=== PATIENT | male | born 1940 | race Caucasian/White ===

== ENCOUNTER 2017-09-08 13:25 | Observation (INO) | payer OTHER, MEDICARE ==
[~2017-09-08] VITALS: Ht 182.9 cm; Wt 152.4 kg
--- NOTE | 2017-09-08 13:43 | ED SYNCOPE COMPLAINT ---
History of Present Illness General Chief Complaint: General Adult Stated Complaint: HYPOTENSIVE, ?SYNCOPE Source: patient, family, old records, EMS Exam Limitations: no limitations Vital Signs & Intake/Output Vital Signs & Intake/Output Vital Signs Date Time Temp Pulse Resp B/P B/P Pulse O2 O2 Flow FiO2 Mean Ox Delivery Rate 09/08 1705 98.0 77 20 112/64 96 Nasal 2.0L Cannula 09/08 1512 97.6 75 24 101/59 94 Nasal 2.0L Cannula 09/08 1428 68 22 82/54 93 Nasal 3.0L Cannula 09/08 1359 93 Nasal 3.0L Cannula 09/08 1331 97.6 82 26 97/52 89 Room Air Allergies Coded Allergies: MDX - Amitriptyline (From [facility]) (Severe, ATRIAL FLUTTER 08/19/10) Reconcile Medications Amlodipine Besylate 5 MG TABLET 0.5 TAB PO DAILY HTN (Reported) Apixaban (Eliquis) 5 MG TABLET 1 TAB PO BID BLOOD THINER (Reported) Cholecalciferol (Vitamin D3) (Vitamin D3) 1,000 UNIT CAPSULE 1 CAP PO DAILY SUPPLEMENT (Reported) Escitalopram Oxalate 10 MG TABLET 1 TAB PO DAILY DEPRESSION (Reported) Ezetimibe (Zetia) 10 MG TABLET 1 TAB PO DAILY HLD (Reported) Metoprolol Tartrate 25 MG TABLET 1 TAB PO BID A.FIB (Reported) Triage Note: PT BIBA FROM HOME FOR ?NEAR 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 PT HAD SUDDEN ONSET OF DIZZINESS WHILE SITTING AT KITCHEN TABLE, DECIDED TO GET UP AND GO LAY DOWN WHEN PT FELL FROM STANDING HEIGHT. PER EMS, REPORTED THAT PT TALKED ALMOST IMMEDIATELY AFTER AND WAS STANDING BEHIND PT WHEN HE FELL SO IT'S INCONCLUSIVE IF PT HAD FULL LOC. PT HAS CHRONIC CHEST PAIN THAT FEELS THE SAME TODAY. HX OF COPD, NO OXYGEN AT BASELINE. PT WAS HYPOTENSIVE ON EMS ARRIVAL. ARRIVES A/O X 4, SLIGHTLY PALE ON ARRIVAL TO ED. Triage Nurses Notes Reviewed? yes Timing: recent history Precipitating Factors: lightheadedness Loss of Consciousness: unsure Associated Symptoms: denies HPI: 77 year old male history of afib on elliquis, copd resents to ER for evaluation for questionable syncopal episode at home. Patient states he was in his normal state of health at the kitchen table went to stand up and became lightheaded. He then as per the fell forward she states that she witnessed the event he did not hit his head, they are not sure if he did black out. The patient denies any on arrival headache neck or back pain or leg injury from the fall. He has a history of chronic chest pain for which he is in pain management his last dose of Vicodin was 2 days ago he states but he took a friend's dose of prescription pain medicine yesterday. He denies any alcohol use today he is an active smoker no vomiting however he has had diarrhea for the past 3 weeks no black or bloody stools No change in his mental status per his however this is the second questionable syncopal episode in the past 3 weeks he did not seek care after the previous episode (Michael Lynn) Past History Travel History Traveled to [place] past 21 day No Medical History Any Pertinent Medical History? see below for history Cardiovascular: AFIB, hypertension Respiratory: COPD Psychiatric: depression Pneumonia Vaccine: 09/22/05 Surgical History Surgical History: non-contributory Psychosocial History Who do you live with Spouse Services at Home None What is your primary language Mongolian Tobacco Use: Current Daily Use Daily Tobacco Use Amount/Type: => 5 Cigarettes daily Family History Hx Contributory? No (Michael Lynn) Review of Systems Review of Systems Constitutional: Reports: see HPI. Comments Review of systems: See HPI, All other systems negative. Constitutional, no chills no fever, no malaise no weight loss HEENT: no sore throat no congestion, no ear pain Cardiovascular: chronic chest pain , no palpitation Skin: no rashes, no change in skin Respiratory: No dyspnea no cough no sputum no hemoptysis GI: No nausea no vomiting, no diarrhea, no bloating/constipation : No dysuria No hematuria, no frequency Muscle skeletal: No joint pain, no back pain, no neck pain, Neurologic: , no headache Psych: No stress no depression,. Heme/endocrine: No bruising no bleeding Immunology: No lymphadenopathy (Michael Lynn) Physical Exam Physical Exam General Appearance: well developed/nourished, no apparent distress, alert, awake Cranial Nerves: normal speech Comments: Well-developed well-nourished person in no acute distress HEENT: Normal EENT exam; PERRL, EOMI, no nystagmus. HEAD is atraumatic. moist mucous membranes. Neck: Supple, no lymphadenopathy, normal range of motion without pain or tenderness Back: Nontender, no CVA tenderness. Full range of motion Cardiovascular: Regular rate and rhythms no murmurs rubs Respiratory: Chest nontender.There were no bony deformities, no asymmetry. No respiratory distress. Patient speaking in full complete sentences. Breath sounds clear to auscultation bilaterally: NO W/R/R Abdomen: Soft, morbidly obese, nontender nondistended, no appreciable organomegaly. Normal bowel sounds. No rebound/guarding, No appreciable enlargement of the abdominal aorta, No ascites. Extremity: No edema, full range of motion of extremities, normal and equal pulses bilaterally, 5 out of 5 strength noted to bilateral upper and lower extremities Neuro: Alert oriented x3, motor sensory normal, cranial nerves II through XII grossly intact. There were no obvious focal neurologic abnormalities. Skin: No appreciable rash on exposed skin, skin is warm and dry. Psych: Mood and affect is normal, memory and judgment is normal. Core Measures ACS in differential dx? Yes CVA/TIA Diagnosis: No Sepsis Present: No Sepsis Focused Exam Completed? No (Leonard KLINE,Michael) Progress Differential Diagnosis: AMI, aortic valve, drug induced syncope, orthostatic syncope, pulmonary embolus, sick sinus syndrome, subarachnoid hem., TIA/CVA, ventricular tach/fib Plan of Care: Orders Procedure Date/time Status Regular Diet 09/08 D Active TROPONIN LEVEL 09/08 1720 Active EKG 09/08 1720 Active Patient Data 09/08 1643 Active LACTIC ACID 09/08 1642 Complete OXYGEN SETUP (GEN) 09/08 1641 Active Saline Lock 09/[address] in observation 09/08 1641 Active Vital Signs 09/08 1641 Active Activity/Ambulation 09/08 1641 Active Code Status 09/08 1641 Active Add-on Test (ER Only) 09/08 1351 Active URINE DRUG SCREEN FOR ER ONLY 09/08 1351 Active URINALYSIS 09/08 1351 Active Telemetry/Standpipe Tender 09/08 1342 Active TROPONIN LEVEL 09/08 1342 Complete PARTIAL THROMBOPLASTIN TIME 09/08 1342 Complete PROTHROMBIN TIME 09/08 1342 Complete LACTIC ACID 09/08 1342 Complete ETHANOL 09/08 1342 Complete COMPREHENSIVE METABOLIC PANEL 09/08 1342 Complete CBC WITHOUT DIFFERENTIAL 09/08 1342 Complete B-TYPE NATRIURETIC PEP (BNP) 09/08 1342 Complete EKG 09/08 1335 Active Intake & Output 09/08 1332 Active Laboratory Tests 09/08/17 1710: Troponin I Pending 09/08/17 1644: Lactic Acid 1.7 09/08/17 1420: Anion Gap 12, Estimated GFR 54 L, BUN/Creatinine Ratio 12.3, Glucose 89, Lactic Acid 2.8 H, Calcium 8.7, Total Bilirubin 0.3, AST 21, ALT 31, Alkaline Phosphatase 41, Troponin I 0.02, Enq-D-Uejuqjudymu Pept 1340 H, Total Protein 5.4 L, Albumin 3.0 L, Globulin 2.4, Albumin/Globulin Ratio 1.3, PT 13.8 H, INR 1.26 H, APTT 34, CBC w Diff NO MAN DIFF REQ, RBC 4.01 L, MCV 97.5 H, MCH 32.4 H, MCHC 33.2, RDW 14.3, MPV 7.2 L, Gran % 81.0 H, Lymphocytes % 10.2 L, Monocytes % 7.3, Eosinophils % 1.0, Basophils % 0.5, Absolute Granulocytes 5.7, Absolute Lymphocytes 0.7 L, Absolute Monocytes 0.5, Absolute Eosinophils 0.1, Absolute Basophils 0, Serum Alcohol 152.0 LABS ORDERED, IV FLUIDS RUNNING, PT AWAKE AND ALERT X 3 ATTHIS TIME C/O CHRONIC CHEST PAIN REQUESTING VICODIN AND SOMETHING TO EAT. 1515 repeat BP 101/59, admitted resting in no acute distress he now admits to one beer and one shot 09/08/2017 4:36:40 PM I updated the patient and his on HIS labs he has not had any abdominal pain, pending CAT scan of the abdomen he is requesting something to eat. IV fluids are running. 1650 discussed with and admitted to his CAT scan results there is been no cough he's afebrile no white count-HE has no sx to suggest pneumonia at this time Diagnostic Imaging: Viewed by Me: Radiology Read, CT Scan. Discussed w/RAD: Radiology Read, CT Scan. Radiology Impression: ATIENT: YAJAIRA HARPER JR PRESENT AGE: 77 PATIENT ACCOUNT NO: [id number] : 42 LOCATION: [facility] ORDERING PHYSICIAN: Michael KLINE SERVICE DATE: 09/08/17-1342 EXAM TYPE: RAD - XRY-PORTABLE CHEST XRAY EXAMINATION: XR CHEST, PORTABLE CLINICAL INFORMATION: Syncope. COMPARISON: Chest done on 05/20/2012. TECHNIQUE: Portable frontal 80 degrees upright view of the chest was obtained. FINDINGS: The cardiomediastinal silhouette is enlarged, at least partially projectional due to the technique. Both lungs are symmetrically expanded and grossly appear clear. The entire study is technically limited due to motion-related artifacts. There is no pleural effusion present. The visualized upper abdomen is unremarkable. IMPRESSION: 1. Technically limited study due to motion-related artifacts. 2. Apparent enlargement of the cardiomediastinal silhouette, at least partially related to the technique. 3. No gross airspace disease. DICTATED BY: Mayra Perez MD DATE/TIME DICTATED:09/08/171423 SOLID FIBER PASTER OPERATOR:BRISA DATE/ TIME TRANSCRIBED:09/08/171423 CONFIDENTIAL, DO NOT COPY WITHOUT APPROPRIATE AUTHORIZATION. <Electronically signed in Other Vendor System> SIGNED BY: Mayra Perez MD 09/08/17 1432, PATIENT: YAJAIRA HARPER JR PRESENT AGE: 77 PATIENT ACCOUNT NO: [id number] : 42 LOCATION: [facility] ORDERING PHYSICIAN: Michael KLINE SERVICE DATE: 09/08/17 EXAM TYPE: CAT - CT HEAD WO IV CONTRAST EXAMINATION: CT HEAD WITHOUT CONTRAST CLINICAL INFORMATION: Near syncope, hypotension COMPARISON: 08/19/2010 TECHNIQUE: Contiguous axial imaging was performed from the skull base to vertex without intravenous administration of contrast. DLP: 633.01 mGy-cm FINDINGS: There is no evidence of acute intracranial hemorrhage or territorial infarction. No abnormal mass effect or midline shift is seen. Garcia to white matter differentiation is well preserved. No extra-axial fluid collections are identified. The ventricles are normal in size. Mild to moderate loss of brain volume with prominence of the sylvian fissure, left more than right, is fairly similar to the comparison CT scan. There are scattered and confluent bilateral periventricular and deep white matter hypodensities which could represent chronic ischemic changes of the small vessel disease. Atherosclerotic calcifications of the cavernous parts of the bilateral carotid arteries noted. The osseous structures and soft tissues are normal. The mastoid air cells and visualized portions of the paranasal sinuses are well aerated. IMPRESSION: No acute intracranial pathology. DICTATED BY: Hal Betancur MD DATE/TIME DICTATED:09/08/171615 SOLID FIBER PASTER OPERATOR:BRISA DATE/TIME TRANSCRIBED:09/08/171615 CONFIDENTIAL, DO NOT COPY WITHOUT APPROPRIATE AUTHORIZATION. <Electronically signed in Other Vendor System> SIGNED BY: Hal Betancur MD 09/08/17 1620, PATIENT: YAJAIRA HARPER JR PRESENT AGE: 77 PATIENT ACCOUNT NO: [id number] : 42 LOCATION: [facility] ORDERING PHYSICIAN: Michael KLINE SERVICE DATE: 09/08/17 EXAM TYPE: CAT - CT ABD & PELVIS W/O IV CONTRAS EXAMINATION: CT ABD PELVIS W/O IV CONTRAS CLINICAL INFORMATION: Presumptive Dx: RO PATHOLOGY
Signs Symptoms: DIARRHEA
COMPARISON: None TECHNIQUE: Multidetector volumetric imaging was performed from the superior aspect of the liver through the pubic symphysis Study done without contrast. Sagittal and coronal reformatted images were obtained on the technologist's workstation. DLP: 1575 mGy-cm FINDINGS: LOWER THORAX: Mild infiltrate/atelectasis and small pleural effusions at both RIGHT and LEFT lower lobes. HEPATOBILIARY: Evaluation of the liver is limited on noncontrasted study. No large liver mass. GALLBLADDER: Has been removed. SPLEEN: Spleen is normal in size. PANCREAS: No focal mass or ductal dilatation. STOMACH AND GASTROINTESTINAL TRACT: Stomach is grossly unremarkable. There is no bowel distention or thickening. No CT evidence of appendicitis. ADRENALS: No adrenal nodules. KIDNEYS/URETERS: There is a 4 mm nonobstructing stone lower calyx RIGHT kidney. There is no hydronephrosis. Perinephric fat are clear. URINARY BLADDER: Unremarkable PELVIC VISCERA: Unremarkable PERITONEUM: No free air or fluid. LYMPH NODES: No lymphadenopathy. VASCULAR: Mild vascular calcifications no aneurysm. BONES, ABDOMINAL WALL AND SOFT TISSUES: Age-appropriate changes of the spine and skeletal system, no destructive osteolytic or osteosclerotic bone lesion found IMPRESSION: 1. There is 4 mm nonobstructing stone lower calyx RIGHT kidney. No hydronephrosis. 2. Mild infiltrates/atelectasis and small pleural effusion at RIGHT and LEFT lower lobe. Please correlate clinically. Other findings as above. DICTATED BY: Gaby Ponce MD DATE/TIME DICTATED:09/08/171616 SOLID FIBER PASTER OPERATOR:BRISA DATE/TIME TRANSCRIBED:09/08/171616 CONFIDENTIAL, DO NOT COPY WITHOUT APPROPRIATE AUTHORIZATION. <Electronically signed in Other Vendor System> SIGNED BY: Gaby Ponce MD 09/08/17 163 Initial ED EKG: normal sinus rhythm, NSR AT 80, NO ACUTE ST SEG CHANGES, NORMAL AXIS Prior EKG: unchanged (Michael Lynn) Departure Departure Time of Disposition: 1638 Disposition: STILL A PATIENT Condition: Stable Clinical Impression Primary Impression: Syncope Secondary Impressions: Alcohol intoxication, Lactic acidosis Referrals: Bobo Alicia MD (PCP/Family) Departure Forms: Customer Survey General Discharge Information Observation Note Spoke With: Fatimah Crook MD Place Patient In: Non-ED OBS Care Area Rationale for Observation: My rational for observation is as follows cardio consult telemetry monitoring trend labs IV fluids premature discharge medically harmful given recent syncope (Michael Lynn) PA/SHOVEL LOG LOADER OPERATOR Co-Sign Statement Statement: ED Attending supervision documentation- x I saw and evaluated the patient. I have also reviewed all the pertinent lab results and diagnostic results. I agree with the findings and the plan of care as documented in the PA's/SHOVEL LOG LOADER OPERATOR's documentation. Syncope, hypotension [] I have reviewed the ED Record and agree with the PA's/SHOVEL LOG LOADER OPERATOR's documentation. [] Additions or exceptions (if any) to the PAs/SHOVEL LOG LOADER OPERATOR's note and plan are summarized below: [] (Tone AREVALO,Heath)
[2017-09-08 14:28] LABS: ABSOLUTE BASOPHIL COUNT 0 /CUMM (0.0-0.2); ABSOLUTE EOSINOPHIL COUNT 0.1 /CUMM (0.0-0.7); ABSOLUTE GRANULOCYTE CT 5.7 /CUMM (1.4-6.5); ABSOLUTE LYMPH COUNT 0.7 /CUMM (1.2-3.4); ABSOLUTE MONOCYTE COUNT 0.5 /CUMM (0.10-0.60); BASOPHIL % 0.5 % (0.0-2.0); HEMATOCRIT 39.1 % (42-52); MEAN CORPUSCULAR HGB 32.4 PG (27.0-31.0); MEAN CORPUSCULAR HGB CONC 33.2 G/DL (33.0-37.0); MEAN CORPUSCULAR VOLUME 97.5 FL (80.0-94.0); MEAN PLATELET VOLUME 7.2 FL (7.4-10.4); PLATELET COUNT 258 /CUMM (130-400); RBC DISTRIBUTION WIDTH 14.3 % (11.5-14.5); RED BLOOD CELL CT 4.01 /CUMM (4.70-6.10); WHITE BLOOD CELL COUNT 7.1 /CUMM (4.8-10.8)
--- NOTE | 2017-09-08 14:32 | RADIOLOGY REPORT ---
EXAMINATION: XR CHEST, PORTABLE CLINICAL INFORMATION: Syncope. COMPARISON: Chest done on 05/20/2012. TECHNIQUE: Portable frontal 80 degrees upright view of the chest was obtained. FINDINGS: The cardiomediastinal silhouette is enlarged, at least partially projectional due to the technique. Both lungs are symmetrically expanded and grossly appear clear. The entire study is technically limited due to motion-related artifacts. There is no pleural effusion present. The visualized upper abdomen is unremarkable. IMPRESSION: 1. Technically limited study due to motion-related artifacts. 2. Apparent enlargement of the cardiomediastinal silhouette, at least partially related to the technique. 3. No gross airspace disease.
[2017-09-08 14:38] LABS: PT 13.8 SEC (9.4-12.5); PTT 34 SEC (25-37)
--- NOTE | 2017-09-08 16:25 | CT SCAN REPORT ---
EXAMINATION: CT HEAD WITHOUT CONTRAST CLINICAL INFORMATION: Near syncope, hypotension COMPARISON: 08/19/2010 TECHNIQUE: Contiguous axial imaging was performed from the skull base to vertex without intravenous administration of contrast. DLP: 633.01 mGy-cm FINDINGS: There is no evidence of acute intracranial hemorrhage or territorial infarction. No abnormal mass effect or midline shift is seen. Garcia to white matter differentiation is well preserved. No extra-axial fluid collections are identified. The ventricles are normal in size. Mild to moderate loss of brain volume with prominence of the sylvian fissure, left more than right, is fairly similar to the comparison CT scan. There are scattered and confluent bilateral periventricular and deep white matter hypodensities which could represent chronic ischemic changes of the small vessel disease. Atherosclerotic calcifications of the cavernous parts of the bilateral carotid arteries noted. The osseous structures and soft tissues are normal. The mastoid air cells and visualized portions of the paranasal sinuses are well aerated. IMPRESSION: No acute intracranial pathology.
--- NOTE | 2017-09-08 16:36 | CT SCAN REPORT ---
EXAMINATION: CT ABD PELVIS W/O IV CONTRAS CLINICAL INFORMATION: Presumptive Dx: RO PATHOLOGY
Signs Symptoms: DIARRHEA
COMPARISON: None TECHNIQUE: Multidetector volumetric imaging was performed from the superior aspect of the liver through the pubic symphysis Study done without contrast. Sagittal and coronal reformatted images were obtained on the technologist's workstation. DLP: 1575 mGy-cm FINDINGS: LOWER THORAX: Mild infiltrate/atelectasis and small pleural effusions at both RIGHT and LEFT lower lobes. HEPATOBILIARY: Evaluation of the liver is limited on noncontrasted study. No large liver mass. GALLBLADDER: Has been removed. SPLEEN: Spleen is normal in size. PANCREAS: No focal mass or ductal dilatation. STOMACH AND GASTROINTESTINAL TRACT: Stomach is grossly unremarkable. There is no bowel distention or thickening. No CT evidence of appendicitis. ADRENALS: No adrenal nodules. KIDNEYS/URETERS: There is a 4 mm nonobstructing stone lower calyx RIGHT kidney. There is no hydronephrosis. Perinephric fat are clear. URINARY BLADDER: Unremarkable PELVIC VISCERA: Unremarkable PERITONEUM: No free air or fluid. LYMPH NODES: No lymphadenopathy. VASCULAR: Mild vascular calcifications no aneurysm. BONES, ABDOMINAL WALL AND SOFT TISSUES: Age-appropriate changes of the spine and skeletal system, no destructive osteolytic or osteosclerotic bone lesion found IMPRESSION: 1. There is 4 mm nonobstructing stone lower calyx RIGHT kidney. No hydronephrosis. 2. Mild infiltrates/atelectasis and small pleural effusion at RIGHT and LEFT lower lobe. Please correlate clinically. Other findings as above.
--- NOTE | 2017-09-08 17:07 | History & Physical ---
General Information and HPI MD Statement: I have seen and personally examined YAJAIRA HARPER JR and documented this H&P. The patient is a 77 year old M who presented with a patient stated chief complaint of [syncopal episode]. Source of Information: patient, family, old records Exam Limitations: no limitations History of Present Illness: 77-year-old male with PMHx of A.fib, HTN, COPD, hx of DVT, chronic left lower pain since he broke his rib long ago, who presented after an episode of syncopal earlier today. The patient felt lightheaded after he stood from the dining table, he then fell forward and lost consciousness for less than a minute as per the witnessed the event. He did not hit his head. The patient denies palpitation, shortness breath, or chest pain prior to the events. No seizure activity, tongue biting, or loss of control over bowel or urine habits. He denies confusion post the event. The patient took Vicodin 2 days ago for chronic right flank pain and left lower chest pain. He decreased smoking from 1 pack to half pack recently. He reported 3 weeks of nonbloody loose diarrhea. He was recently treated for bronchitis with antibiotic. The patient denies any other current active complaints. Allergies/Medications Allergies: Coded Allergies: amitriptyline (From ELAVIL) (Severe, ATRIAL FLUTTER 09/08/17) Home Med list Amlodipine Besylate 5 MG TABLET 0.5 TAB PO DAILY HTN (Reported) Apixaban (Eliquis) 5 MG TABLET 1 TAB PO BID BLOOD THINER (Reported) Cholecalciferol (Vitamin D3) (Vitamin D3) 1,000 UNIT CAPSULE 1 CAP PO DAILY SUPPLEMENT (Reported) Escitalopram Oxalate 10 MG TABLET 1 TAB PO DAILY DEPRESSION (Reported) Ezetimibe (Zetia) 10 MG TABLET 1 TAB PO DAILY HLD (Reported) Metoprolol Tartrate 25 MG TABLET 1 TAB PO BID A.FIB (Reported) Past History Travel History Traveled to [place] past 21 day No Medical History Cardiovascular: AFIB, hypertension Respiratory: COPD Psychiatric: depression Pneumonia Vaccine: 09/22/05 Surgical History Surgical History: non-contributory Past Family/Social History Psychosocial History Services at Home: None Review of Systems Review of Systems Constitutional: Denies: chills, diaphoresis, fever, malaise, weakness, unexplained weight loss. EENTM: Denies: visual changes, hearing changes. Cardiovascular: Reports: peripheral edema, syncope. Denies: chest pain, edema, orthopena, palpitations. Respiratory: Reports: cough (at base line), sputum production (white, at baseline). Denies: hemoptysis, orthopnea, short of breath, wheezing. GI: Reports: diarrhea. Denies: bloating, constipation, distention, nausea, vomiting. Genitourinary: Denies: dysuria, hematuria. Musculoskeletal: Reports: back pain, joint pain. Skin: Denies: rash. Exam & Diagnostic Data Last 24 Hrs of Vital Signs/I&O Vital Signs Date Time Temp Pulse Resp B/P B/P Pulse O2 O2 Flow FiO2 Mean Ox Delivery Rate 09/08 1842 92.6 87 20 114/78 95 09/08 1831 94 Nasal 1.0L Cannula 09/08 1705 98.0 77 20 112/64 96 Nasal 2.0L Cannula 09/08 1512 97.6 75 24 101/59 94 Nasal 2.0L Cannula 09/08 1428 68 22 82/54 93 Nasal 3.0L Cannula 09/08 1359 93 Nasal 3.0L Cannula 09/08 1331 97.6 82 26 97/52 89 Room Air Physical Exam General Appearance Alert, Oriented X3, Cooperative, No Acute Distress Skin No Rashes HEENT Atraumatic, PERRLA, EOMI Neck Supple, No JVD Cardiovascular Regular Rate, Normal S1, Normal S2, No Murmurs Lungs Clear to Auscultation, Normal Air Movement Abdomen Soft, No Tenderness Neurological Normal Speech Extremities No Clubbing, No Cyanosis, edema up to the knee Last 24 Hrs of Labs/Sam: Laboratory Tests 09/08/171817: Methadone Screen Pending, Barbiturate Screen Pending, Ur Phencyclidine Scrn Pending, Amphetamines Screen Pending, U Benzodiazepines Scrn Pending, Urine Cocaine Screen Pending, Urine Cannabis Screen Pending, Urinalysis LIGHT H, Urine Color YEL, Urine Clarity CLEAR, Urine pH 6.0, Ur Specific [place] 1.010, Urine Protein TRACE H, Urine Ketones NEG, Urine Nitrite NEG, Urine Bilirubin NEG, Urine Urobilinogen 0.2, Ur Leukocyte Esterase NEG, Ur Microscopic SEDIMENT EXAMINED, Urine RBC RARE, Urine WBC RARE, Ur Epithelial Cells RARE, Hyaline Casts RARE H, Urine Mucus FEW, Urine Hemoglobin NEG, Urine Glucose NEG 09/08/17 1710: Troponin I 0.02 09/08/17 1644: Lactic Acid 1.7 09/08/17 1420: Anion Gap 12, Estimated GFR 54 L, BUN/Creatinine Ratio 12.3, Glucose 89, Lactic Acid 2.8 H, Calcium 8.7, Total Bilirubin 0.3, AST 21, ALT 31, Alkaline Phosphatase 41, Troponin I 0.02, Osb-D-Rxptimvrmgl Pept 1340 H, Total Protein 5.4 L, Albumin 3.0 L, Globulin 2.4, Albumin/Globulin Ratio 1.3, PT 13.8 H, INR 1.26 H, APTT 34, CBC w Diff NO MAN DIFF REQ, RBC 4.01 L, MCV 97.5 H, MCH 32.4 H, MCHC 33.2, RDW 14.3, MPV 7.2 L, Gran % 81.0 H, Lymphocytes % 10.2 L, Monocytes % 7.3, Eosinophils % 1.0, Basophils % 0.5, Absolute Granulocytes 5.7, Absolute Lymphocytes 0.7 L, Absolute Monocytes 0.5, Absolute Eosinophils 0.1, Absolute Basophils 0, Serum Alcohol 152.0 Assessment/Plan Assessment: 77-year-old male with PMHx of A.fib, HTN, COPD, hx of DVT, chronic left lowerchest pain who presented with chief complaint of syncopal episode. The patient reports lightheaded after standing from sitting position. He reported diarrhea for the past 3 weeks. He is in amlodipine(arterial dilator) and metoprolol(blood reflux tachycardia). Most likely he has orthostatic hypotension especially given his mild TOBY and mildly lactic acidosis on admission. He also cut down on the number of cigarettes, possibly the antihypertensive medication dose need to be adjusted. Head CT didn't show any acute pathology. Plan #Syncopal episode with hx of A.fib * Monitoring telemetry * Orthostatic check * Rule out ACS with serial troponins and EKG * Echocardiogram * Continue metoprolol 25 mg twice a day * Continue Eliquis * Cardiology consult in the morning #TOBY * We'll start gentle hydration with 75 mL an hour * Repeat renal function the morning * Avoid all nephrotoxic including NSAIDs #Diarrhea for the past 3 weeks * Was recently treated with antibiotic for bronchitis * We will send for C. difficile * IV hydration until he tolerated adequate oral intake #HTN * Hold amlodipine given blood pressure in the lower border of normal. #Chronic pain * Tylenol as needed * Avoid NSAIDs given TOBY #Alcohol use * CIWA scoring #COPD * TRC/Nebs PRN * Continue oxygen as needed As Ranked By This Provider Problem List: 1. Syncope 2. Lactic acidosis Core Measures/Misc (12/29) Acute Coronary Syndrome ACS Diagnosis: No Congestive Heart Failure Congestive Heart Failure Diagnosis No Cerebrovascular Accident CVA/TIA Diagnosis: No VTE (View Protocol) VTE Risk Factors Acute Medical Illness No Mechanical VTE Prophylaxis d/t N/A MechProphylax Ordered No VTE Pharm Prophylaxis d/t NA PharmProphylax ordered Sepsis (View protocol) Sepsis Present: No If YES complete Sepsis Event Note If YES complete Sepsis Event Note
[2017-09-08] MEDS ORDERED: METOPROLOL TART25 M1 PO (17:31)
[2017-09-08] MEDS ORDERED: AMLODIPINE BESYL5 M1 PO (17:32)
[2017-09-08] MEDS ORDERED: ESCITALOPRAM OX10 MG PO (17:32)
[2017-09-08] MEDS ORDERED: VITAMIN D31000 UNI1 PO (17:32)
[2017-09-08] MEDS ORDERED: ELIQUIS5 M1 PO (17:33)
[2017-09-08] MEDS ORDERED: ZETIA10 M1 PO (17:35)
[2017-09-08 18:42] VITALS: BP 114/78
--- NOTE | 2017-09-08 18:47 | PN- Att Addend ---
Attending Addendum Attending Brief Note 77M PMH paroxysmal atrial fibrillation on Eliquis, chronic pain, presenting with questionable syncopal episode. He recently ran out of his Vicodin which he takes for chronic chest pain. Today he stood up from sitting, became lightheaded, and fell forward. It is unclear if he lost consciousness, but he did not hit his head. He currently only reports chest pain. He was hyptensive on arrival, improved after IV fluids CT head negative, EKG NSR. Plan - Observation in telemetry - Serial EKG and troponi - IV hydration - Check orthostats in morning - Continue ome medications - EChocardiogram - DVT PPx
[2017-09-08 20:00] VITALS: BP 130/72
[2017-09-08 22:07] VITALS: BP 130/72
[2017-09-09 06:57] VITALS: BP 162/90
--- NOTE | 2017-09-09 07:18 | PN- Housestaff ---
Seth AREVALO,[facility] 09/09/17 0717: Subjective Follow-up For: Syncope Tele-Events Since Last Visit: NSR/ST with HR 82-105 Subjective: Patient seen and examined. States he has left sided chest pain since the fall which is exacerbated with deep breaths. He has chronic chest pain for which he has undergone various tests with Dr Blankenship with no positive results. He states he has chronic symptoms of dizziness and lightheadedness. Review of Systems Constitutional: Reports: no symptoms. Objective Last 24 Hrs of Vital Signs/I&O Vital Signs Date Time Temp Pulse Resp B/P B/P Pulse O2 O2 Flow FiO2 Mean Ox Delivery Rate 09/09 0657 98.2 90 16 162/90 95 09/08 2251 93 Nasal 1.0L Cannula 09/08 2207 98.5 97 24 130/72 93 09/08 2107 80 130/72 09/08 2000 86 130/72 09/09 1999 98.5 86 18 130/72 09/08 1842 92.6 87 20 114/78 95 09/08 1831 94 Nasal 1.0L Cannula 09/08 1705 98.0 77 20 112/64 96 Nasal 2.0L Cannula 09/08 1512 97.6 75 24 101/59 94 Nasal 2.0L Cannula 09/08 1428 68 22 82/54 93 Nasal 3.0L Cannula 09/08 1359 93 Nasal 3.0L Cannula 09/08 1331 97.6 82 26 97/52 89 Room Air Intake & Output 09/09 0800 09/09 0000 09/08 1600 Intake Total 200 Output Total 950 825 Balance -750 -825 Intake, Oral 200 Output, Urine 950 825 Patient 335 lb Weight Physical Exam General Appearance: Alert, Oriented X3, Cooperative, Mild Distress Skin: No Rashes, No Breakdown Skin Temp/Moisture Exam: Warm/Dry Sepsis Skin Exam (color): Normal for Ethnicity HEENT: Atraumatic Cardiovascular: Normal S1, Normal S2, No Murmurs Lungs: Normal Air Movement Abdomen: Soft, No Tenderness Neurological: Normal Speech Extremities: b/l lower extremity edema Last 24 Hrs of Lab/Sam Results Last 24 Hrs of Labs/Mics: Laboratory Tests 09/09/17 0615: Sodium Pending, Potassium Pending, Chloride Pending, Carbon Dioxide Pending, Anion Gap Pending, BUN Pending, Creatinine Pending, BUN/Creatinine Ratio Pending , CBC w Diff NO MAN DIFF REQ, RBC 4.15 L, MCV 97.2 H, MCH 32.9 H, MCHC 33.8, RDW 14.2, MPV 8.4, Gran % 82.8 H, Lymphocytes % 10.9 L, Monocytes % 4.5, Eosinophils % 1.5, Basophils % 0.3, Absolute Granulocytes 7.2 H, Absolute Lymphocytes 0.9 L, Absolute Monocytes 0.4, Absolute Eosinophils 0.1, Absolute Basophils 0 09/08/17 2300: Troponin I 0.02 09/08/17 1818: Urine Opiates Screen < 100, Methadone Screen 55, Barbiturate Screen < 60, Ur Phencyclidine Scrn < 6.00, Amphetamines Screen 175, U Benzodiazepines Scrn < 85, Urine Cocaine Screen < 50, Urine Cannabis Screen < 5.00, Urinalysis LIGHT H, Urine Color YEL, Urine Clarity CLEAR, Urine pH 6.0, Ur Specific [place] 1.010, Urine Protein TRACE H, Urine Ketones NEG, Urine Nitrite NEG, Urine Bilirubin NEG, Urine Urobilinogen 0.2, Ur Leukocyte Esterase NEG, Ur Microscopic SEDIMENT EXAMINED, Urine RBC RARE, Urine WBC RARE, Ur Epithelial Cells RARE, Hyaline Casts RARE H, Urine Mucus FEW, Urine Hemoglobin NEG, Urine Glucose NEG 09/08/17 1710: Troponin I 0.02 09/08/17 1644: Lactic Acid 1.7 09/08/17 1420: Anion Gap 12, Estimated GFR 54 L, BUN/Creatinine Ratio 12.3, Glucose 89, Lactic Acid 2.8 H, Calcium 8.7, Total Bilirubin 0.3, AST 21, ALT 31, Alkaline Phosphatase 41, Troponin I 0.02, Cmb-W-Tuvxzvyxvor Pept 1340 H, Total Protein 5.4 L, Albumin 3.0 L, Globulin 2.4, Albumin/Globulin Ratio 1.3, PT 13.8 H, INR 1.26 H, APTT 34, CBC w Diff NO MAN DIFF REQ, RBC 4.01 L, MCV 97.5 H, MCH 32.4 H, MCHC 33.2, RDW 14.3, MPV 7.2 L, Gran % 81.0 H, Lymphocytes % 10.2 L, Monocytes % 7.3, Eosinophils % 1.0, Basophils % 0.5, Absolute Granulocytes 5.7, Absolute Lymphocytes 0.7 L, Absolute Monocytes 0.5, Absolute Eosinophils 0.1, Absolute Basophils 0, Serum Alcohol 152.0 Microbiology 09/08 2010 STOOL: Clostridium difficile Toxin A & B - COLB Assessment/Plan Assessment: 77-year-old male with PMH of A.fib, HTN, COPD, hx of DVT, chronic left lowerchest pain who presented with chief complaint of a syncopal episode. Assessment: 1. Syncopal episode 2. TOBY - resolved 3. Diarrhea 4. History of Hypertension 5. History of Chronic Pain 6. History of COPD Plan: * Continue monitoring on telemetry for another day. * ACS was ruled out with serial troponins and EKGs * Unclear what precipitated the syncopal event. Patient does have a history of chronic dizziness/lightheadedness. * Echocardiogram to assess LVEF and structural abnormalities - pending * No need for further IVF as his TOBY has resolved. * No further episodes of diarrhea. * Tylenol 1g q8 and Oxycodone 5mg q8p for severe pain. * Continue Amlodipine 5mg home dose for hypertension * Continue Eliquis 5mg BID and Metoprolol 25mg BID3 * Continue Lexapro 10mg daily. * Diet: Regular diet * DVT Prophylaxis: SC Lovenox * Code: Full Code Problem List: 1. Syncope Pain Ratin Pain Location: none Pain Goal: Remain pain free Pain Plan: none Tomorrow's Labs & Rationales: none Ana AREVALO,Sera 09/09/17 1016: Attending Review Statement Attending Statement Attending MD Statement: examined this patient, discuss w/resident/PA/CISCO CONSULTANT, agreed w/resident/PA/CISCO CONSULTANT, reviewed EMR data (avail), discussed with nursing, reviewed images Attending Assessment/Plan: Pt is still complaining of chest pain. He feels that this is all from where he hit his chest with a syncopal event. He feels is musculoskeletal in nature. He is nervous that even before this event his O2 sats were low, which he checks at home. He is a 77-year-old male with morbid obesity and A. fib on Eliquis is here status post a syncopal event. He was hypotensive when he first came to the ER and now with fluids that's resolved. He is not orthostatic. His Norvasc is on hold but his other medications have been continued. Given this ongoing complaint of chest pain and an uninterpretable initial chest x-ray will repeat the chest x-ray today. We'll also have Dr. Mccord who is covering for Dr. Blankenship to see him. Patient is in observation status and if his repeat chest x- ray is okay, his sats are okay and he is cleared by cardiology he can be discharged with outpatient follow-up. home. He is a 77-year-old male with morbid obesity and A. fib on Eliquis is here status post a syncopal event. He was hypotensive when he first came to the ER and now with fluids that's resolved. He is not orthostatic. His Norvasc is on hold but his other medications have been continued. Given this ongoing complaint of chest pain and an uninterpretable initial chest x-ray will repeat the chest x-ray today. We'll also have Dr. Mccord who is covering for Dr. Blankenship to see him. Patient is in observation status and if his repeat chest x- ray is okay, his sats are okay and he is cleared by cardiology he can be discharged with outpatient follow-up.
[2017-09-09 07:51] LABS: ABSOLUTE BASOPHIL COUNT 0 /CUMM (0.0-0.2); ABSOLUTE EOSINOPHIL COUNT 0.1 /CUMM (0.0-0.7); ABSOLUTE GRANULOCYTE CT 7.2 /CUMM (1.4-6.5); ABSOLUTE LYMPH COUNT 0.9 /CUMM (1.2-3.4); ABSOLUTE MONOCYTE COUNT 0.4 /CUMM (0.10-0.60); BASOPHIL % 0.3 % (0.0-2.0); EOSINOPHIL % 1.5 % (0-5); GRANULOCYTE % 82.8 % (42.2-75.2); HEMATOCRIT 40.3 % (42-52); MEAN CORPUSCULAR HGB 32.9 PG (27.0-31.0); MEAN CORPUSCULAR HGB CONC 33.8 G/DL (33.0-37.0); MEAN CORPUSCULAR VOLUME 97.2 FL (80.0-94.0); MEAN PLATELET VOLUME 8.4 FL (7.4-10.4); PLATELET COUNT 259 /CUMM (130-400); RBC DISTRIBUTION WIDTH 14.2 % (11.5-14.5); RED BLOOD CELL CT 4.15 /CUMM (4.70-6.10); WHITE BLOOD CELL COUNT 8.6 /CUMM (4.8-10.8)
[2017-09-09 08:00] VITALS: BP 162/90
--- NOTE | 2017-09-09 11:16 | RADIOLOGY REPORT ---
EXAMINATION: XR CHEST CLINICAL INFORMATION: COPD with musculoskeletal chest pain. Fall with chest trauma. COMPARISON: 09/09/2017 chest x-ray, chest CT from 12/28/2015 TECHNIQUE: 2 views of the chest were obtained. FINDINGS: The study is obtained in obliquity and is underpenetrated. There is stable upper mediastinal prominence, which is similar given differences intact knee to both prior studies and appears to correlate with prominent mediastinal fat. Prominence of the cardiac silhouette also appears to be related to some epicardial fat and is grossly unchanged. The lungs appear clear. No definitive consolidation, pulmonary edema, pleural effusion or pneumothorax. The lateral views are limited due to underpenetration and demonstrate multilevel thoracic spondylosis without definitive compression deformities. IMPRESSION: Limited study without definitive change from the priors. Prominence of the cardiomediastinal silhouette appears to relate to mediastinal and epicardial fat. However, in the setting of trauma if there is clinical concern for mediastinal injury, correlation with CT is recommended given limitations of this examination.
--- NOTE | 2017-09-09 12:39 | Cons- Cardiology ---
General Information and HPI Consulting Request Date of Consult: 09/09/17 Requested By: Sera Perez MD Reason for Consult: Syncope History of Present Illness: The patient is a pleasant 77-year-old male with history of paroxysmal atrial fibrillation, hypertension, COPD, and deep vein thrombosis. He is admitted after syncope. He stood up from the dining table and felt briefly dizzy, followed by loss of consciousness. He fell to the floor, and was observed by his to be unconscious for a few seconds before waking up. No seizure activity noted. He notes intermittent mild lightheadedness. He has had several other similar syncopal episodes, most recently 1 month ago. No chest pain. No shortness of breath. No palpitations. No diaphoresis. No nausea or vomiting. He took Vicodin 2 days ago for right flank pain. He decrease his smoking to one half pack per day recently. He complains of diarrhea 3 weeks. He noted some recurrent lightheadedness today Allergies/Medications Allergies: Coded Allergies: amitriptyline (From [facility]) (Severe, [facility]TER 09/08/17) Home Med List: Amlodipine Besylate 5 MG TABLET 0.5 TAB PO DAILY HTN (Reported) Apixaban (Eliquis) 5 MG TABLET 1 TAB PO BID BLOOD THINER (Reported) Cholecalciferol (Vitamin D3) (Vitamin D3) 1,000 UNIT CAPSULE 1 CAP PO DAILY SUPPLEMENT (Reported) Escitalopram Oxalate 10 MG TABLET 1 TAB PO DAILY DEPRESSION (Reported) Ezetimibe (Zetia) 10 MG TABLET 1 TAB PO DAILY HLD (Reported) Metoprolol Tartrate 25 MG TABLET 1 TAB PO BID A.FIB (Reported) Current Medications: Current Medications Sig/Agatha Start time Last Medication Dose Route Stop Time Status Admin Acetaminophen 1,000 MG Q8 09/09 0807 AC 09/09 PO 0921 Acetaminophen 1,000 MG Q8P PRN 09/08 2100 DC 09/08 PO 2107 Acetaminophen 0 .STK-MED ONE 09/08 1432 DC IV Acetaminophen 1,000 MG ONCE ONE 09/08 1400 DC 09/08 N/A 1 UNIT IV 09/08 1414 1428 Apixaban 5 MG BID 09/08 2100 AC 09/09 PO 0922 Escitalopram Oxalate 10 MG DAILY 09/09 0900 AC 09/09 PO 09 Ezetimibe 10 MG DAILY 09/09 0900 AC 09/09 PO 0922 Metoprolol Tartrate 25 MG BID 09/08 2100 AC 09/09 PO 0922 Morphine Sulfate 15 MG Q4 HRS NEEDED PRN 09/09 0300 AC 09/09 PO 0921 Sodium Chloride 1,000 ML Q13H 09/08 1900 DC 09/08 IV 1931 Sodium Chloride 1,000 ML BOLUS ONE 09/08 1430 DC 09/08 IV 09/08 1529 1428 Sodium Chloride 1,000 ML BOLUS ONE 09/08 1400 DC 09/08 IV 09/08 1459 1359 Review of Systems Review of Systems: No rash. No tremor. No fever. No chills. All other systems were reviewed, and were noted to be negative. Past History Travel History Traveled to [place] past 21 day No Medical History Blood Transfusion Hx: No Cardiovascular: AFIB, hypertension Respiratory: COPD Gastrointestinal: RANDOM PAIN Renal: NEW THIS ADMISSION KIDNEY STONE R SIDE Musculoskeletal: ARTHRITIS NEEDS NEW KNEES Psychiatric: depression Surgical History Surgical History: non-contributory Family History Relations & Conditions If Any: MOTHER Heart attack Psychosocial History Services at Home: None Smoking Status: Current Everyday Smoker Exam & Diagnostic Data Vital Signs and I&O Vital Signs Date Time Temp Pulse Resp B/P B/P Pulse O2 O2 Flow FiO2 Mean Ox Delivery Rate 09/09 0922 90 162/90 09/09 0800 98.2 90 16 162/90 09/09 0800 95 Nasal 1.0L Cannula 09/09 0657 98.2 90 16 162/90 95 09/08 2251 93 Nasal 1.0L Cannula 09/08 2207 98.5 97 24 130/72 93 09/08 2107 80 130/72 09/09 1999 86 130/72 09/09 1999 98.5 86 18 130/72 09/08 1842 92.6 87 20 114/78 95 09/08 1831 94 Nasal 1.0L Cannula 09/08 1705 98.0 77 20 112/64 96 Nasal 2.0L Cannula 09/08 1512 97.6 75 24 101/59 94 Nasal 2.0L Cannula 09/08 1428 68 22 82/54 93 Nasal 3.0L Cannula 09/08 1359 93 Nasal 3.0L Cannula 09/08 1331 97.6 82 26 97/52 89 Room Air Intake & Output 09/09 1600 09/09 0800 09/09 0000 09/08 1600 09/08 0800 09/08 0000 Intake Total 300 200 Output Total 250 950 825 Balance 50 -750 -825 Intake, Oral 300 200 Output, Urine 250 950 825 Patient 335 lb Weight Physical Exam: Gen: The patient is in no acute distress HEENT: Normal nose, ears, and oropharynx. Pupils equal bilaterally. Conjunctiva normal. Neck: Supple with no JVD, no masses, and no thyromegaly Lungs: Clear to auscultation with normal respiratory effort Heart: RRR, S1, S2, no murmurs. No peripheral edema, 2+ pulses in the lower extremities bilaterally Abdomen: Soft, nontender, no masses. No hepatomegaly. No splenomegaly Extremities: No clubbing or cyanosis. Normal muscle strength in the upper and lower extremities Skin: Normal skin turgor with no skin ulcers or lesions noted. Neuro: Cranial nerves intact. Sensation intact Psych: Alert and oriented x 3 with appropriate affect Labs/Sam Results: Laboratory Tests 09/09 09/08 0615 2300 Chemistry Sodium (137 - 145 mmol/L) 141 Potassium (3.5 - 5.1 mmol/L) 5.0 Chloride (98 - 107 mmol/L) 106 Carbon Dioxide (22 - 30 mmol/L) 25 Anion Gap (5 - 16) 10 BUN (9 - 20 mg/dL) 15 Creatinine (0.7 - 1.2 mg/dL) 1.0 Estimated GFR (>60 ml/min) > 60 BUN/Creatinine Ratio (7 - 25 %) 15.0 Troponin I (<0.11 ng/ml) 0.02 Hematology CBC w Diff NO MAN DIFF REQ WBC (4.8 - 10.8 /CUMM) 8.6 RBC (4.70 - 6.10 /CUMM) 4.15 L Hgb (14.0 - 18.0 G/DL) 13.6 L Hct (42 - 52 %) 40.3 L MCV (80.0 - 94.0 FL) 97.2 H MCH (27.0 - 31.0 PG) 32.9 H MCHC (33.0 - 37.0 G/DL) 33.8 RDW (11.5 - 14.5 %) 14.2 Plt Count (130 - 400 /CUMM) 259 MPV (7.4 - 10.4 FL) 8.4 Gran % (42.2 - 75.2 %) 82.8 H Lymphocytes % (20.5 - 51.1 %) 10.9 L Monocytes % (1.7 - 9.3 %) 4.5 Eosinophils % (0 - 5 %) 1.5 Basophils % (0.0 - 2.0 %) 0.3 Absolute Granulocytes (1.4 - 6.5 /CUMM) 7.2 H Absolute Lymphocytes (1.2 - 3.4 /CUMM) 0.9 L Absolute Monocytes (0.10 - 0.60 /CUMM) 0.4 Absolute Eosinophils (0.0 - 0.7 /CUMM) 0.1 Absolute Basophils (0.0 - 0.2 /CUMM) 0 09/08 09/08 09/08 1818 1710 1644 Chemistry Lactic Acid (0.7 - 2.1 mmol/L) 1.7 Troponin I (<0.11 ng/ml) 0.02 Toxicology Urine Opiates Screen (>2000 NG/ML) < 100 Methadone Screen (>300 NG/ML) 55 Barbiturate Screen (>200 NG/ML) < 60 Ur Phencyclidine Scrn (>25 NG/ML) < 6.00 Amphetamines Screen (>1000 NG/ML) 175 U Benzodiazepines Scrn (>200 NG/ML) < 85 Urine Cocaine Screen (>300 NG/ML) < 50 Urine Cannabis Screen (>50 NG/ML) < 5.00 Urines Urinalysis LIGHT H Urine Color (YEL,AMB,STR) YEL Urine Clarity (CLEAR) CLEAR Urine pH (5.0 - 8.0) 6.0 Ur Specific Foley (1.001 - 1.035) 1.010 Urine Protein (NEG,<30 MG/DL) TRACE H Urine Ketones (NEG) NEG Urine Nitrite (NEG) NEG Urine Bilirubin (NEG) NEG Urine Urobilinogen (0.1 - 1.0 EU/dl) 0.2 Ur Leukocyte Esterase (NEG) NEG Ur Microscopic SEDIMENT EXAMINED Urine RBC (0 - 5 /HPF) RARE Urine WBC (0 - 2 /HPF) RARE Ur Epithelial Cells (NONE,FEW) RARE Hyaline Casts (0/LPF) RARE H Urine Mucus (FEW,NONE) FEW Urine Hemoglobin (NEG) NEG Urine Glucose (N MG/DL) NEG 09/08 1420 Chemistry Sodium (137 - 145 mmol/L) 141 Potassium (3.5 - 5.1 mmol/L) 4.2 Chloride (98 - 107 mmol/L) 103 Carbon Dioxide (22 - 30 mmol/L) 26 Anion Gap (5 - 16) 12 BUN (9 - 20 mg/dL) 16 Creatinine (0.7 - 1.2 mg/dL) 1.3 H Estimated GFR (>60 ml/min) 54 L BUN/Creatinine Ratio (7 - 25 %) 12.3 Glucose (65 - 99 mg/dL) 89 Lactic Acid (0.7 - 2.1 mmol/L) 2.8 H Calcium (8.4 - 10.2 mg/dL) 8.7 Total Bilirubin (0.2 - 1.3 mg/dL) 0.3 AST (17 - 59 U/L) 21 ALT (21 - 72 U/L) 31 Alkaline Phosphatase (< 127 U/L) 41 Troponin I (<0.11 ng/ml) 0.02 [id number] Pept (<125 pg/mL) 1340 H Total Protein (6.3 - 8.2 g/dL) 5.4 L Albumin (3.5 - 5.0 g/dL) 3.0 L Globulin (1.9 - 4.2 gm/dL) 2.4 Albumin/Globulin Ratio (1.1 - 2.2 %) 1.3 Coagulation PT (9.4 - 12.5 SEC) 13.8 H INR (0.90 - 1.17) 1.26 H APTT (25 - 37 SEC) 34 Hematology CBC w Diff NO MAN DIFF REQ WBC (4.8 - 10.8 /CUMM) 7.1 RBC (4.70 - 6.10 /CUMM) 4.01 L Hgb (14.0 - 18.0 G/DL) 13.0 L Hct (42 - 52 %) 39.1 L MCV (80.0 - 94.0 FL) 97.5 H MCH (27.0 - 31.0 PG) 32.4 H MCHC (33.0 - 37.0 G/DL) 33.2 RDW (11.5 - 14.5 %) 14.3 Plt Count (130 - 400 /CUMM) 258 MPV (7.4 - 10.4 FL) 7.2 L Gran % (42.2 - 75.2 %) 81.0 H Lymphocytes % (20.5 - 51.1 %) 10.2 L Monocytes % (1.7 - 9.3 %) 7.3 Eosinophils % (0 - 5 %) 1.0 Basophils % (0.0 - 2.0 %) 0.5 Absolute Granulocytes (1.4 - 6.5 /CUMM) 5.7 Absolute Lymphocytes (1.2 - 3.4 /CUMM) 0.7 L Absolute Monocytes (0.10 - 0.60 /CUMM) 0.5 Absolute Eosinophils (0.0 - 0.7 /CUMM) 0.1 Absolute Basophils (0.0 - 0.2 /CUMM) 0 Toxicology Serum Alcohol (<10 MG/DL) 152.0 Diagnostic Data EKG Results EKG tracing is independently reviewed, and reveals normal sinus rhythm at 85 with frequent premature atrial contractions, left axis deviation, QTc 490 CXR Results Chest x-ray 09/09/17 Limited study without definitive change from the priors. Prominence of the cardiomediastinal silhouette appears to relate to mediastinal and epicardial fat. However, in the setting of trauma if there is clinical concern for mediastinal injury, correlation with CT is recommended given limitations of this examination. Other Results Head CT: Negative CT scan of the abdomen and pelvis: 1. There is 4 mm nonobstructing stone lower calyx RIGHT kidney. No hydronephrosis. 2. Mild infiltrates/atelectasis and small pleural effusion at RIGHT and LEFT lower lobe. Please correlate clinically. Other findings as above. Assessment/Plan Assessment/Plan The patient is a 77-year-old male with history of hypertension, DVT, COPD, paroxysmal atrial for ablation who is admitted after sudden onset of syncope. He has had several other recent syncopal episodes. Telemetry monitoring reveals premature atrial contractions but no other significant arrhythmias. He is not orthostatic. Myocardial infarction has been ruled out with negative troponin 3 Recommendations: * Continue current cardiac medications per * Echocardiogram pending * If the patient remains clinically stable he may be discharged after the echocardiogram. He should follow up with Dr. Blankenship within 1 week Consult Acknowledgment - Thank you for your consult request.
[2017-09-09 15:02] VITALS: BP 158/98
--- NOTE | 2017-09-09 17:10 | ECHOCARDIOGRAM REPORT ---
YAJAIRA HARPER Age: 77 : 1940 Gender: M Exam Date: 09/09/2017 11:28 Exam Location: [facility] Ht (in): 72 Wt (lb): 336 BSA: 2.86 BP: 162 / 90 Ordering Physician: Tatum Ann MD Referring Physician: Tatum Ann MD Technologist: kC Summers RUST Room Number: 180-1 Indications: Atrial fibrillation Rhythm: Atrial fibrillation Technical Quality: very technically limited FINDINGS Left Ventricle Left ventricle not well visualized. Normal size left ventricle. Left ventricular wall thickness increased. Normal left ventricular ejection fraction estimated at 60-65%. Right Ventricle Right ventricle not well visualized. Right Atrium Right atrium not well visualized, grossly normal. Left Atrium Left atrial dilatation. Left atrium not well visualized. Mitral Valve Mitral valve thickened. Mitral valve not well visualized. Aortic Valve Aortic valve not well visualized. Tricuspid Valve Tricuspid valve not well visualized. Pulmonic Valve Pulmonic valve not well visualized. Pericardium No pericardial effusion. Great Vessels Aortic root and proximal ascending aorta not well visualized. CONCLUSIONS 1. This was a technically very difficult and extremely limited examination. 2. Aortic sclerosis is present. 3. Mitral leaflet thickening is present with left atrial enlargement. Mitral insufficiency is present, the severity of which could not be well assessed. 4. There is no obvious pericardial fluid present. 5. The left ventricular chamber size and systolic function appear normal. Accurate wall motion assessment was not possible. 6. The right heart structures were not optimally assessed. The RV systolic pressure could not be assessed on this examination. Yaritza Blankenship M.D. (Electronically Signed) Final Date: 09 Sep 2017 17:09 MEASUREMENTS (Male / Female) Normal Values DOPPLER AV Peak Velocity 162.0 cm/s AV Peak Gradient 10.5 mmHg LVOT Peak Velocity 107.0 cm/s LVOT Peak Gradient 4.6 mmHg Mitral E Point Velocity 106.0 cm/s Mitral A Point Velocity 121.0 cm/s Mitral E to A Ratio 0.9 MV Deceleration Time 268.0 ms
[2017-09-09 22:28] VITALS: BP 140/86
--- NOTE | 2017-09-09 23:23 | CT SCAN REPORT ---
EXAMINATION: CT CHEST WITHOUT CONTRAST CLINICAL INFORMATION: Chest pain status post trauma. Question of mediastinal injury. COMPARISON: CT 12/27/2016. Chest radiograph from earlier today. TECHNIQUE: Multidetector volumetric CT imaging of the chest was done. Axial MIP volume rendering provided. Sagittal and coronal reformatted images were obtained. DLP: 1073 mGy-cm FINDINGS: COAT TAILOR: Similar appearance of the mediastinum to the prior radiograph. LUNGS: The central airways are patent. There are small bilateral pleural effusions with associated basilar atelectasis. No pneumothorax. No additional consolidation. MEDIASTINUM: The heart is normal in size. Coronary artery calcifications are present. There is no mediastinal lymphadenopathy. There is prominence of the epicardial fat as well as tortuosity of the vasculature. This likely lens to the prominent appearance on radiograph. No evidence of fluid collection or gross vascular injury on this noncontrast study. AXILLA: No lymphadenopathy. UPPER ABDOMEN: Cholecystectomy. OSSEOUS STRUCTURES: No acute or suspicious osseous abnormality. DISH. No scapular fracture. The sternum is intact. No acute rib fracture. Chronic left lateral rib fractures which are healed are noted. IMPRESSION: 1. No evidence of acute traumatic injury to the chest. Specifically, no evidence of mediastinal injury. 2. Prominence of the epicardial fat with tortuosity of the vasculature likely length to the prominent appearance of the cardiomediastinal silhouette on radiograph. 3. Small bilateral pleural effusions with associated basilar atelectasis.
[2017-09-10 06:54] VITALS: BP 140/94
--- NOTE | 2017-09-10 07:02 | PN-Observation ---
Seth AREVALO,[facility] 09/10/17 0701: Observation Note Observation Note _ I have personally examined YAJAIRA HARPER JR. him disposition is uncertain at this time. Before a determination can be made, he requires continued observation for the following reasons [work up for syncopal episode]. Assessment/Plan Medical Assessment: 77-year-old male with PMH of A.fib, HTN, COPD, hx of DVT, chronic left lowerchest pain who presented with chief complaint of a syncopal episode. Assessment: 1. Syncopal episode 2. TOBY - resolved 3. Diarrhea 4. History of Hypertension 5. History of Chronic Pain 6. History of COPD Plan: * Stable to be discharged today. * Unclear what precipitated the syncopal event. Patient does have a history of chronic dizziness/lightheadedness. * Echocardiogram showed normal LVEF but wall motion abnormalities and RVSP could not be assessed. * No further episodes of diarrhea. * Tylenol 1g q8 and Oxycodone 10mg q8p for severe pain. Will discharge him on this regimen as well as lidoderm patch * Continue Amlodipine 2.5mg home dose for hypertension * Continue Eliquis 5mg BID and Metoprolol 25mg BID * Continue Lexapro 10mg daily. * Diet: Regular diet * DVT Prophylaxis: SC Lovenox * Code: Full Code Problem List: 1. Syncope Subjective Follow-up For: Syncope Tele-Events Since Last Visit: NSR/ST with HR 73-105. No overnight events. Subjective: Patient seen and examined. Slept well last night. Says his left sided chest pain is present but significantly improved. He looks forward to being discharged. Review of Systems Constitutional: Reports: no symptoms. Objective Last 24 Hrs of Vital Signs/I&O Vital Signs Date Time Temp Pulse Resp B/P B/P Pulse O2 O2 Flow FiO2 Mean Ox Delivery Rate 09/10 0654 97.5 71 20 140/94 92 Room Air 09/09 2228 97.9 83 16 140/86 92 Room Air 09/09 2009 158/62 09/09 1534 89 158/98 09/09 1502 97.8 89 16 158/98 93 Room Air 09/09 0922 90 162/90 Intake & Output 09/10 1600 09/10 0800 09/10 0000 Intake Total 182 150 Output Total 450 300 Balance -268 -150 Intake, IV 32 Intake, Oral 150 150 Output, Urine 450 300 Patient 336 lb Weight Weight Bed scale Measurement Method Physical Exam General Appearance: Alert, Oriented X3, Cooperative, Mild Distress Skin: No Rashes, No Breakdown Skin Temp/Moisture Exam: Warm/Dry Sepsis Skin Exam (color): Normal for Ethnicity HEENT: Atraumatic Cardiovascular: Normal S1, Normal S2, No Murmurs Lungs: Normal Air Movement Abdomen: Soft, No Tenderness Neurological: Normal Speech Extremities: b/l 2+ lower extremity edema Ana AREVALO,Sera 09/10/17 0947: Observation Note Observation Note _ I have personally examined YAJAIRA HARPER . him disposition is uncertain at this time. Before a determination can be made, he requires continued observation for the following reasons - patient was placed in observation status after he had a near syncopal event, hit his chest and was having pain when he took a deep breath. Overnight with monitored him now for close to 48 hours with no abnormality, his echo shows an EF of 60-65% with no valvular abnormalities. Because of the worry of the patient telling us that he was desaturating before he came in and this pain, we got a noncontrast chest CT which was also okay. Patient is stable to leave with outpatient follow-up. We are going to give him 10 tablets of oxycodone 10 mg every 6 to use very sparingly as needed. He understands that he needs to follow-up with Dr. Alicia and with Dr. Blankenship as an outpatient.
--- NOTE | 2017-09-10 07:07 | Patient Discharge Instructions ---
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 Please call Susan at [phone] for your CPAP Diet Continue normal diet: Yes Activity Full Activity/No Limits: Yes Acute Coronary Syndrome Inclusion Criteria At DC or during hospital stay patient has or had the following: ACS DIAGNOSIS No Discharge Core Measures Meds if any: Prescribed or Continued at Discharge Meds if any: NOT Prescribed or Continued at Discharge Congestive Heart Failure Inclusion Criteria At DC or during hospital stay patient has or had the following: CHF DIAGNOSIS No Discharge Core Measures Meds if any: Prescribed or Continued at Discharge Meds if any: NOT Prescribed or Continued at Discharge Cerebrovascular accident Inclusion Criteria At DC or during hospital stay patient has or had the following: CVA/TIA Diagnosis No Discharge Core Measures Meds if any: Prescribed or Continued at Discharge Meds if any: NOT Prescribed or Continued at Discharge Venous thromboembolism Inclusion Criteria VTE Diagnosis No VTE Type NONE VTE Confirmed by (Test) NONE Discharge Core Measures - Per Current guidelines, there needs to be overlap - treatment for the first 5 days of Warfarin therapy. - If discharged on Warfarin prior to 5 days of - overlap therapy, the patient will need to be - assessed for post discharge needs including - *Post discharge parental anticoagulation - *Warfarin and/or parental anticoagulation education - *Follow up date to check INR post discharge At least 5 days overlap therapy as Inpatient No Meds if any: Prescribed or Continued at Discharge Note: Overlap Therapy is Warfarin and Anticoagulant Meds if any: NOT Prescribed or Continued at Discharge
[2017-09-10 08:27] VITALS: BP 140/94
[2017-09-10] MEDS ORDERED: TYLENOL EXTRA500 M2 PO ×2 (09:47→10:02)
[2017-09-10] MEDS ORDERED: OXYCODONE HCL10 M2 PO ×2 (09:48→10:02)
[2017-09-10] MEDS ORDERED: LIDOCAINE1 EACH TOP (09:48)
--- NOTE | 2017-09-10 10:11 | PN- Student ---
Subjective Subjective: Source: patient Reliability: nominal Subjective: Patient was admitted two days ago following a syncopal episode which happened after he stood up from his kitchen table. He described feeling light headed after standing and then "passing out". He awoke on the floor and and felt as though he had landed on his face and ribs. He describes a long history of similar episodes, each of which occured after standing. he also describes a long history of chronic pain, particularly in his left chest, and says it is partially controlled by Lexapro. This morning he awoke in a great deal of pain "all over" and he also tried to describe some type of discomfort which he could not articulate. He did not use his CPAP machine last night due to its lack of humidified air. Objective Objective: Physical Exam: General: Patient is confused this AM, speaking in short sentances with long pauses in between. Pulse oximetry showed an SpO2 of 90%.
--- NOTE | 2017-09-10 11:45 | PN- Cardiology ---
Subjective Subjective: The patient sitting in bed quietly. Continues to have chest discomfort/ epigastric discomfort with sitting up and with coughing. Otherwise stable. Objective Vital Signs and I&Os Vital Signs Date Time Temp Pulse Resp B/P B/P Pulse O2 O2 Flow FiO2 Mean Ox Delivery Rate 09/10 0827 71 140/94 09/10 0827 71 140/94 09/10 0654 97.5 71 20 140/94 92 Room Air 09/09 2228 97.9 83 16 140/86 92 Room Air 09/09 2009 158/62 09/09 1534 89 158/98 09/09 1502 97.8 89 16 158/98 93 Room Air Intake & Output 09/10 1600 09/10 0000 09/09 0000 Intake Total 182 150 960 200 Output Total 450 300 500 950 825 Balance -268 -150 460 -750 -825 Intake, IV 32 160 Intake, Oral 150 150 800 200 Output, Urine 450 300 500 950 825 Patient 336 lb 335 lb Weight Weight Bed scale Measurement Method Physical Exam: General Appearance: well developed, overweight, white male, alert, awake, oriented, mild distress secondary to intermittent chest discomfort with respiration and coughing Head: normal HEENT: Normal Neck: supple, JVP normal, carotid upstrokes normal bilaterally, no masses or thyromegaly Respiratory: chest non-tender, clear to auscultation and percussion bilaterally Cardiovascular: regular rate/rhythm, normal S1, S2, 1/6 systolic murmur Abdomen: normal bowel sounds, soft, non-tender Extremities: normal inspection, mild edema Vascular: Pulses are 2+ and equal bilaterally Neurologic: Grossly normal/nonfocal Current Medications: Current Medications Sig/Agatha Start time Last Medication Dose Route Stop Time Status Admin Acetaminophen 1,000 MG Q8 09/09 0807 AC 09/10 PO 0606 Amlodipine Besylate 5 MG DAILY 09/09 1446 AC 09/10 PO 826 Apixaban 5 MG BID 09/08 2099 AC 09/10 PO 825 Escitalopram Oxalate 10 MG DAILY 09/09 09 AC 09/10 PO 825 Ezetimibe 10 MG DAILY 09/09 09 AC 09/10 PO 825 Metoprolol Tartrate 25 MG BID 09/08 2099 AC 09/10 PO 826 Morphine Sulfate 4 MG ONCE ONE 09/09 2245 DC 09/09 IV 09/09 Morphine Sulfate 2 MG Q4P PRN 09/09 2200 DC 09/10 IV 0606 Morphine Sulfate 15 MG ONCE ONE 09/09 1914 DC 09/09 PO 09/09 Morphine Sulfate 15 MG Q4 HRS NEEDED PRN 09/09 0300 DC 09/09 PO 0921 Oxycodone HCl 10 MG ONCE ONE 09/10 1130 DC 09/10 PO 09/10 1131 1132 Oxycodone HCl 5 MG Q8P PRN 09/09 1545 AC 09/10 PO 0606 Oxycodone HCl 5 MG Q8P PRN 09/09 1445 CAN PO Results Last 48 Hrs of Labs/Mics: Laboratory Tests 09/09/17 0615: Anion Gap 10, Estimated GFR > 60, BUN/Creatinine Ratio 15.0, CBC w Diff NO MAN DIFF REQ, RBC 4.15 L, MCV 97.2 H, MCH 32.9 H, MCHC 33.8, RDW 14.2, MPV 8.4, Gran % 82.8 H, Lymphocytes % 10.9 L, Monocytes % 4.5, Eosinophils % 1.5, Basophils % 0.3, Absolute Granulocytes 7.2 H, Absolute Lymphocytes 0.9 L, Absolute Monocytes 0.4, Absolute Eosinophils 0.1, Absolute Basophils 0 09/08/17 2300: Troponin I 0.02 09/08/17 1818: Urine Opiates Screen < 100, Methadone Screen 55, Barbiturate Screen < 60, Ur Phencyclidine Scrn < 6.00, Amphetamines Screen 175, U Benzodiazepines Scrn < 85, Urine Cocaine Screen < 50, Urine Cannabis Screen < 5.00, Urinalysis LIGHT H, Urine Color YEL, Urine Clarity CLEAR, Urine pH 6.0, Ur Specific [place] 1.010, Urine Protein TRACE H, Urine Ketones NEG, Urine Nitrite NEG, Urine Bilirubin NEG, Urine Urobilinogen 0.2, Ur Leukocyte Esterase NEG, Ur Microscopic SEDIMENT EXAMINED, Urine RBC RARE, Urine WBC RARE, Ur Epithelial Cells RARE, Hyaline Casts RARE H, Urine Mucus FEW, Urine Hemoglobin NEG, Urine Glucose NEG 09/08/17 1710: Troponin I 0.02 09/08/17 1644: Lactic Acid 1.7 09/08/17 1420: Anion Gap 12, Estimated GFR 54 L, BUN/Creatinine Ratio 12.3, Glucose 89, Lactic Acid 2.8 H, Calcium 8.7, Total Bilirubin 0.3, AST 21, ALT 31, Alkaline Phosphatase 41, Troponin I 0.02, [id number] Pept 1340 H, Total Protein 5.4 L, Albumin 3.0 L, Globulin 2.4, Albumin/Globulin Ratio 1.3, PT 13.8 H, INR 1.26 H, APTT 34, CBC w Diff NO MAN DIFF REQ, RBC 4.01 L, MCV 97.5 H, MCH 32.4 H, MCHC 33.2, RDW 14.3, MPV 7.2 L, Gran % 81.0 H, Lymphocytes % 10.2 L, Monocytes % 7.3, Eosinophils % 1.0, Basophils % 0.5, Absolute Granulocytes 5.7, Absolute Lymphocytes 0.7 L, Absolute Monocytes 0.5, Absolute Eosinophils 0.1, Absolute Basophils 0, Serum Alcohol 152.0 Assessment/Plan Assessment/Plan Assessment: 1. Positional syncope 2. Atrial arrhythmias 3. Paroxysmal atrial for ablation 4. History of hypertension 5. Obesity 6. COPD Recommendations: -Continue current medications -Out of bed and ambulate -Check blood pressure and heart rate with ambulation. -The situation was discussed in detail with the patient. He is encouraged to be very careful when assuming the upright position from lying or sitting. Maintain adequate hydration. -Follow-up with me in the office in 2 weeks. Continue telemetry? No
== END 2017-09-10 14:30 | disposition home health service (06) ==
LOC: ERH 13:25 → 1NO 16:41 → ERHI 16:41 → ENRESERV 17:06 → ENTRNSPT 17:52 → EDTRNSPTSTS 18:11 → 1NO 18:25 → CMPTRNSPT 18:39 → 1NO 09-09 07:09 → ENPENDDIS 09-10 10:02 → ENTRNSPT 09-10 14:00 → EDTRNSPTSTS 09-10 14:10 → CMPTRNSPT 09-10 14:13 → 1NO 09-10 14:30
PROVIDERS: Internal Medicine; Physician Assistant Medical
DX: R55 Syncope and collapse (principal); I48.0 Paroxysmal atrial fibrillation; Z79.01 Long term (current) use of anticoagulants; I10 Essential (primary) hypertension; J44.9 Chronic obstructive pulmonary disease, unspecified; Z86.718 Personal history of other venous thrombosis and embolism; F32.9 Major depressive disorder, single episode, unspecified; N17.9 Acute kidney failure, unspecified; E87.2 Acidosis; R19.7 Diarrhea, unspecified; G89.29 Other chronic pain; Z72.89 Other problems related to lifestyle; E66.9 Obesity, unspecified; Z79.899 Other long term (current) drug therapy
CPT/HCPCS: 1328; 1425; 1530; 1748; 36592; 71045; 71046; 74176; 80307; 81001; 82436; 93005; 93010; 93306; 96361; 96374; 96375; 96376; 99291; G0378; G0480; J0131